=== PATIENT | male | born 1940 | race Caucasian/White ===

== ENCOUNTER → 2024-07-20 | Outpatient (CLI) | payer MEDICARE ==
--- NOTE | 2024-07-20 15:29 | MR ---
INDICATION: Patient age:Male; 84 years old; Reason for study: I67.9 CEREBROVASCULAR DISEASE; [facility]H. COMPARISON: None. TECHNIQUE: Multi planar, multi sequence imaging was performed through the brain without the administr ation of intravenous contrast. FINDINGS: The eric-white junctions, ventricular system, basal cisterns appear unremarkable. Age-appropriate mil d cerebral volume loss. Diffusion-weighted imaging shows no evidence of restricted diffusion to sugge st acute/subacute infarct. Intracranial arterial flow voids are maintained. Midline structures show n o abnormality. Patchy areas of high T2/FLAIR signal intensity are seen within the supratentorial rosanna ventricular and subcortical white matter. Largest is within the right parietal lobe periventricular w zina matter measuring up to 6 mm (series 601, 20). The susceptibility weighted images couple foci of punctate blooming artifact within the inferior right frontal lobe from prior hemosiderin deposition. The bilateral mesial temporal lobes are symmetric without signal abnormality. The bone marrow signal is within normal limits. Bilateral aphakia. Mild mucosal thickening of the eth moid sinuses. Left sphenoid sinus opacification. Moderate mucosal thickening of the right maxillary s inus. IMPRESSION: 1. No evidence of intracranial mass or acute/subacute infarct. 2. Nonspecific mild white matter changes, likely related to small vessel ischemic disease. 3. Paranasal sinus disease which is most pronounced within the right maxillary sinus. [facility], , 07/20/2024 3:27 PM
== END | disposition home or self-care (01) ==
LOC: RADMRIMAIN 14:06
PROVIDERS: ATTEND Psychiatry & Neurology Neurology
DX: I67.9 Cerebrovascular disease, unspecified (principal); R90.82 White matter disease, unspecified; J34.89 Other specified disorders of nose and nasal sinuses
CPT/HCPCS: 70551